=== PATIENT | male | born 1965 | race Caucasian/White ===

== ENCOUNTER 2016-05-31 06:50 | Day surgery (SDC) | payer BC, OTHER ==
[~2016-05-31 06:50] MED LIST: Lactated Ringers 1,000 ML IV SCH
[2016-05-31] MEDS ORDERED: Propofol 200 MG/20 ML SDV ONE ×2 (09:03→09:20)
[2016-05-31] MEDS ORDERED: fentaNYL 100 MCG/2 ML SDV ONE (09:04)
[2016-05-31 10:54] VITALS: BP 132/87
--- NOTE | 2016-05-31 15:06 | OR ---
DATE OF SURGERY: 05/31/2016. REFERRING PROVIDER: KATIE Vargas. PREOPERATIVE DIAGNOSES: 1. Screening colonoscopy. 2. Positive family history of colon polyps in a brother. POSTOPERATIVE DIAGNOSES: 1. Six small colon polyps removed. a. 2 mm and 3 mm polyps at 90 cm removed with cold forceps. b. 4 mm polyp x2 at 80 cm, removed with hot snare, both removed with hot snare. c. 3 mm polyp at 50 cm, removed with cold forceps. d. 2 mm polyp at 30 cm removed with cold forceps. PROCEDURE: Colonoscopy with polypectomy x6 (2 using hot snare and 4 using cold forceps). SURGEON: Bishop Toney M.D. ANESTHESIA: Monitored anesthesia care. BOWEL PREP: Good. Jaya is a 51-year-old male who was brought to the endoscopy suite after discussing risks and benefits of the procedure. Informed consent was obtained for conscious sedation and colonoscopy with or without biopsy and/or polypectomy. We also discussed possibility of missed lesions. Pre-procedure exam was unremarkable. IV, oxygen, and monitors were placed. The patient was placed in the left lateral decubitus position. Sedation was administered and a digital rectal exam was performed which was unremarkable. Colonoscope was passed into the rectum and slowly advanced all the way to the cecum. Cecum was viewed and photographed. The colonoscope was slowly withdrawn and the mucosa was closed observed in a direct circumferential manner. The ascending colon was unremarkable. The transverse colon was revealed 2 mm and 3 mm polyps at 90 cm, both removed with cold forceps. There was also a 4 mm polyp x2, both removed with hot snare at 80 cm. The descending colon was remarkable for a 3 mm polyp at 50 cm, removed with cold forceps. The sigmoid colon was remarkable for a 2 mm polyp at 30 cm removed with cold forceps. Retroflexion was performed and rectal mucosa was unremarkable. Scope was removed. The patient tolerated the procedure well. The patient was monitored until that baseline status. Discharge instructions were reviewed and the patient was discharged in good condition. COMPLICATIONS: None. TOTAL TIME: 29 minutes. ESTIMATED BLOOD LOSS: About 1 mL. RECOMMENDATIONS/FOLLOW-UP: We will await results of path report to determine ideal followup interval. I would like to thank Robert Burgess for this referral. DMB: 05/31/2016 10:10:55 MODL: 05/31/2016 14:58:50 /[id number]
== END 2016-05-31 10:40 | disposition home or self-care (01) ==
LOC: VM.SDS 06:50
PROVIDERS: ATTEND Family Medicine
DX: Z12.11 Encounter for screening for malignant neoplasm of colon (principal); D12.6 Benign neoplasm of colon, unspecified; K63.5 Polyp of colon; Z98.890 Other specified postprocedural states; Z98.52 Vasectomy status; Z79.899 Other long term (current) drug therapy
CPT/HCPCS: 45380; 45385; J2704; J3010; J7120